=== PATIENT | male | born 1995 | race Caucasian/White ===

== ENCOUNTER 2017-10-05 12:05 | Emergency (ER) | payer OTHER ==
[2017-10-05] MEDS: LIDOCAINE 1% (MDV) 10 ML INJ INJ (13:23)
== END 2017-10-05 14:37 | disposition home or self-care (01) ==
LOC: FTE 14:37
DX: S01.81XA Laceration without foreign body of other part of head, initial encounter (principal); V80.010A Animal-rider injured by fall from or being thrown from horse in noncollision accident, initial encounter
CPT/HCPCS: 12011; 70486; 99284-25